=== PATIENT | female | born 1940 | race Asian ===

== ENCOUNTER 2017-02-01 13:26 | Outpatient (RCR) | payer MEDICARE, BC ==
[~2017-02-01 13:26] MED LIST: ALLEGRA 180MG180 MG PO; ASPIRIN 81M81 MG/TA2 PO; CITRACAL + D CA1 TAB PO; CORDARONE200 MG/TAB PO; COUMADIN 5MG5 MG/TAB PO; COZAAR 25MG25 MG/TAB PO; DIOVAN320 MG PO; ELIDEL1% TOP; FLONASEALLERGY NS; GLUCOPHAGE500 MG/TAB PO; K-DUR 10 MEQ T10 MEQ PO; LASIX 40MG TABL40 MG PO; LIPITOR 40MG TA40 MG PO; MULTIPLE VITAMI1 CAP PO; OSCAL 500 TAB500 MG PO; ROBAFEN COUGH PO; TOPROL XL 25MG25 MG PO; VERELAN240 MG PO
== END 2017-02-03 | disposition still patient (30) ==
LOC: COL.CR
DX: Z48.812 Encounter for surgical aftercare following surgery on the circulatory system (principal); Z95.2 Presence of prosthetic heart valve; Z79.01 Long term (current) use of anticoagulants; I35.2 Nonrheumatic aortic (valve) stenosis with insufficiency; I34.0 Nonrheumatic mitral (valve) insufficiency

== ENCOUNTER 2017-03-04 15:41 | Outpatient (RCR) | payer MEDICARE, BC | END 2017-05-05 | disposition home or self-care (01) | LOC: COL.CR | DX: Z48.812 Encounter for surgical aftercare following surgery on the circulatory system (principal); Z95.2 Presence of prosthetic heart valve ==

== ENCOUNTER → 2017-09-30 | Outpatient (CLI) | payer MEDICARE, BC | LOC: COL.RAD 08:03 | DX: K82.8 Other specified diseases of gallbladder (principal) | CPT/HCPCS: A9537 ==

== ENCOUNTER 2017-11-05 07:15 | Day surgery (SDC) | payer MEDICARE, BC ==
[2017-11-05] VITALS (7 sets, daily range): BP systolic 100–152; BP diastolic 48–96; PULSE 47–82; TEMP 98–98.3
[~2017-11-05] VITALS: Ht 157.5 cm; Wt 81.2 kg
[2017-11-05 08:09] LABS: PROTHROMBIN TIME 11.3 SECONDS (9.7-12.8)
[2017-11-05 08:11] LABS: POTASSIUM 4.2 mmol/L (3.4-5.0)
[2017-11-05 08:46] LABS: THYROID STIMULATING HORMONE 47.2 uIU/mL (0.465-4.680)
== END 2017-11-05 11:37 | disposition home or self-care (01) ==
LOC: COL.CAR 07:15
PROVIDERS: Internal Medicine Cardiovascular Disease
DX: I48.0 Paroxysmal atrial fibrillation (principal); I48.92 Unspecified atrial flutter; I10 Essential (primary) hypertension; E78.5 Hyperlipidemia, unspecified; E11.9 Type 2 diabetes mellitus without complications; I27.20 Pulmonary hypertension, unspecified; I34.0 Nonrheumatic mitral (valve) insufficiency; Z95.2 Presence of prosthetic heart valve; Z79.84 Long term (current) use of oral hypoglycemic drugs; Z82.49 Family history of ischemic heart disease and other diseases of the circulatory system
CPT/HCPCS: J2250; J3010; J7030

== ENCOUNTER → 2017-12-09 | Outpatient (CLI) | payer MEDICARE, BC | LOC: MC.RAD 13:40 | DX: Z12.31 Encounter for screening mammogram for malignant neoplasm of breast (principal) ==

== ENCOUNTER 2018-10-15 15:45 | Outpatient (RCR) | payer MEDICARE | END 2018-12-16 | disposition home or self-care (01) | LOC: COL.CR | DX: Z02.89 Encounter for other administrative examinations (principal) ==

== ENCOUNTER 2019-06-01 17:24 | Emergency (ER) | payer MEDICARE, BC ==
[~2019-06-01] VITALS: Ht 157.5 cm; Wt 83.2 kg
[2019-06-01 17:33] VITALS: TEMP 96.6
[2019-06-01 18:19] LABS: BASO % 0.7 % (0.0-2.0); EOS # 0.1 (0.0-0.7); EOS % 2.3 % (0-4.0); GRAN # 3.3 (1.4-6.5); GRAN % 58.4 % (42.2-75.2); HEMOGLOBIN 13.5 g/dl (12.5-16.0); LYMPH # 1.6 (1.2-3.4); LYMPH % 28.5 % (20.0-51.0); MEAN CELL VOLUME 93 fl (80.0-100.0); MEAN CORPUSCULAR HEMOGLOBIN 31 pg (27.0-31.0); MEAN CORPUSCULAR HGB CONC 33 g/dl (33.0-37.0); MEAN PLATELET VOLUME 10.6 fl (7.4-10.4); MONO # 0.6 (0.1-0.6); MONO % 9.7 % (1.7-9.3); PLATELET COUNT 193 K/mm3 (130-400); RED BLOOD COUNT 4.41 M/mm3 (4.10-5.30)
[2019-06-01 18:24] LABS: INR 1.1 (0.8-3.0); PROTHROMBIN TIME 13.2 SECONDS (9.7-12.8)
[2019-06-01 18:27] LABS: PARTIAL THROMBOPLASTIN TIME 41.6 SECONDS (26.0-37.0)
[2019-06-01 18:32] LABS: ALANINE AMINOTRANSFERASE 13 U/L (9-52); ALKALINE PHOSPHATASE 78 U/L (50-136); ANION GAP 10 mmol/L (7-16); AST,SGOT 29 U/L (15-37); BILIRUBIN,TOTAL 0.4 mg/dL (0.0-1.0); BLOOD UREA NITROGEN 25 mg/dL (7-17); CALCIUM 10.1 mg/dL (8.4-10.2); CARBON DIOXIDE 31 mmol/L (22-30); CHLORIDE 98 mmol/L (98-107); CREATININE, serum 0.84 (0.52-1.25); GLUCOSE 106 mg/dL (74-106); POTASSIUM 3.7 mmol/L (3.4-5.0); SODIUM 140 mmol/L (137-145); TOTAL PROTEIN 7.5 gm/dL (6.4-8.2)
[2019-06-01 18:57] LABS: TROPONIN-I < 0.012 ng/mL (0.000-0.035)
[2019-06-01 21:02] VITALS: BP 107/55; PULSE 94
== END 2019-06-01 21:02 | disposition home or self-care (01) ==
LOC: COL.ER 17:24
PROVIDERS: Family Medicine
DX: R07.89 Other chest pain (principal); I48.91 Unspecified atrial fibrillation; Z79.82 Long term (current) use of aspirin; Z79.84 Long term (current) use of oral hypoglycemic drugs

== ENCOUNTER → 2020-10-13 | Outpatient (CLI) | payer MEDICARE, BC | LOC: COL.RAD 15:22 | DX: N95.0 Postmenopausal bleeding (principal); N93.8 Other specified abnormal uterine and vaginal bleeding ==

== ENCOUNTER 2021-02-11 21:20 | Emergency (ER) | payer MEDICARE, BC ==
[~2021-02-11] VITALS: Ht 160 cm; Wt 73.2 kg
[~2021-02-11 21:20] MED LIST changes: -MULTIPLE VITAMI1 CAP PO; +MULTIPLE VITAMI1 TA5 PO
[2021-02-11 21:24] VITALS: TEMP 99.6
[2021-02-11 23:07] VITALS: BP 119/65; PULSE 76
== END 2021-02-11 23:07 | disposition home or self-care (01) ==
LOC: COL.ER 21:20
DX: S69.92XA Unspecified injury of left wrist, hand and finger(s), initial encounter (principal); I10 Essential (primary) hypertension; I25.10 Atherosclerotic heart disease of native coronary artery without angina pectoris; Z95.9 Presence of cardiac and vascular implant and graft, unspecified; Z88.0 Allergy status to penicillin; Z79.82 Long term (current) use of aspirin; W01.0XXA Fall on same level from slipping, tripping and stumbling without subsequent striking against object, initial encounter

== ENCOUNTER 2021-05-09 17:51 | Inpatient (IN) | payer MEDICARE, BC ==
--- NOTE | 2021-05-10 14:30 | NUR ---
Pt admitted to medical unit rm 315 from home, ambulates into room with steady gait, A&O x 4. Physical assessment unremarkable. Pt denies pain. POC and room orientation reviewed with pt. Call light in reach.
[2021-05-10] MEDS ORDERED: TYLENOL W/COD1 UDTAB PO (14:31)
[2021-05-10] MEDS ORDERED: LIPITOR 10MG10 MG PO (14:32)
[2021-05-10] MEDS ORDERED: CALCIUM CARBON650 M2 PO (14:32)
[2021-05-10] MEDS ORDERED: COLCRYS0.6 MG PO (14:34)
[2021-05-10] MEDS ORDERED: TIAZAC180 MG PO (14:37)
[2021-05-10] MEDS ORDERED: ELIQUIS 5MG PO (14:41)
[2021-05-10] MEDS ORDERED: SYNTHROID0.088 MG/T PO (14:43)
[2021-05-10] MEDS ORDERED: PREDNISONE 5MG5 MG PO (14:43)
[2021-05-10] MEDS ORDERED: DIOVAN HCT 25 M1 TAB PO (14:45)
[2021-05-10 14:52] LABS: ALBUMIN 4.5 gm/dL (3.5-5.0); BILIRUBIN,TOTAL 0.4 mg/dL (0.0-1.0); CALCIUM 10.4 mg/dL (8.4-10.2); CREATININE, serum 1.16 (0.52-1.25); POTASSIUM 3.7 mmol/L (3.4-5.0); TOTAL PROTEIN 7.9 gm/dL (6.4-8.2)
[2021-05-10 14:53] LABS: BASO # 0.1 (0.0-0.2); BASO % 0.7 % (0.0-2.0); EOS # 0.1 (0.0-0.7); EOS % 0.8 % (0-4.0); GRAN # 5.7 (1.4-6.5); GRAN % 77.2 % (42.2-75.2); LYMPH # 0.9 (1.2-3.4); MEAN CELL VOLUME 92 fl (80.0-100.0); MEAN CORPUSCULAR HEMOGLOBIN 30 pg (27.0-31.0); MEAN CORPUSCULAR HGB CONC 33 g/dl (33.0-37.0); MEAN PLATELET VOLUME 9.7 fl (7.4-10.4); MONO # 0.6 (0.1-0.6); MONO % 8.6 % (1.7-9.3); PLATELET COUNT 272 K/mm3 (130-400); RED BLOOD COUNT 3.97 M/mm3 (4.10-5.30); REDCELL DISTRIBUTION WIDTH-CV 15.2 % (11.5-14.5)
[2021-05-10 14:54] LABS: INR 1.4 (0.8-3.0)
[2021-05-10 15:04] LABS: HEMATOCRIT 36.6 % (37.0-47.0)
[2021-05-10 16:31] VITALS: BP 142/72; PULSE 130; TEMP 98.1
--- NOTE | 2021-05-10 19:18 | NUR ---
Report with JAMEY Santoro. Pt sitting up in chair, denies needs or c/o at this time. Call light in reach.
--- NOTE | 2021-05-10 20:30 | NUR ---
Initial shift assessment done-- denies any chest pain or SOB, sitting in chair, watching a show on her Ipad, requesting a snack tonight- pleasant , alert/oriented. Tele on- afib, rate 128/ just received her first dose of sotalol -
[2021-05-10 21:05] VITALS: BP 122/75; PULSE 122; TEMP 98.3
[2021-05-10 23:51] VITALS: BP 128/78; PULSE 116
--- NOTE | 2021-05-11 00:03 | NUR ---
No requests at this time , VSS, Tele is ST at 118,, talked to forensic technician at this time- states patient has been ST all shift not afib as thought earlier in the shift- states there is a small p-wave noted. Pt states she feels fine- just cant sleep--offered restoril or tylenol and pt declined--states this is nothing new to her-she doesnt sleep much
[2021-05-11 04:06] VITALS: BP 109/72; PULSE 120; TEMP 98
--- NOTE | 2021-05-11 05:07 | NUR ---
Resting-- has not slept much,, tele on, remains in ST with rate 114-120,,B/P stable
[2021-05-11 06:30] LABS: BASO % 0.5 % (0.0-2.0); EOS # 0.1 (0.0-0.7); EOS % 1.2 % (0-4.0); GRAN # 5.4 (1.4-6.5); GRAN % 72.4 % (42.2-75.2); HEMOGLOBIN 11.6 g/dl (12.5-16.0); LYMPH # 1.3 (1.2-3.4); MEAN CELL VOLUME 93 fl (80.0-100.0); MEAN CORPUSCULAR HEMOGLOBIN 31 pg (27.0-31.0); MEAN CORPUSCULAR HGB CONC 33 g/dl (33.0-37.0); MEAN PLATELET VOLUME 9.8 fl (7.4-10.4); MONO # 0.6 (0.1-0.6); MONO % 7.4 % (1.7-9.3); PLATELET COUNT 249 K/mm3 (130-400); RED BLOOD COUNT 3.79 M/mm3 (4.10-5.30); REDCELL DISTRIBUTION WIDTH-CV 15.2 % (11.5-14.5)
[2021-05-11 06:35] LABS: HEMATOCRIT 35.1 % (37.0-47.0)
[2021-05-11 06:38] LABS: INR 1.2 (0.8-3.0); PROTHROMBIN TIME 13.4 SECONDS (9.7-12.8)
[2021-05-11 06:59] LABS: CALCIUM 10.1 mg/dL (8.4-10.2); CREATININE, serum 0.88 (0.52-1.25); POTASSIUM 3.4 mmol/L (3.4-5.0)
[2021-05-11 07:09] LABS: MAGNESIUM 2.2 mg/dL (1.6-2.3)
--- NOTE | 2021-05-11 08:00 | NUR ---
PT RECEIVED AWARE AND ALERT. NO S/S OF DISTRESS NOTED. PT VOICES NO COMPLAINTS. DENIES PAIN. CALL-LIGHT IN REACH. BED IN LOW POSITION.
[2021-05-11 08:01] VITALS: BP 121/79; PULSE 125; TEMP 97.5
--- NOTE | 2021-05-11 11:58 | NUR ---
First visit from the stripper and taper. No needs right now.
[2021-05-11 12:10] VITALS: BP 91/58; PULSE 76; TEMP 97.7
[2021-05-11 15:33] VITALS: BP 76/46; PULSE 60; TEMP 98.2
[2021-05-11 15:48] VITALS: BP 94/62; PULSE 79
--- NOTE | 2021-05-11 16:41 | NUR ---
Natural Resource Officer met with patient to discuss discharge planning. Patient lives in [place] with her , Akira (ph#[phone]) and sees Dr. Mayfield for primary care. [facility]. Patient does not use any DME and is independent with ADLS. Patient believes her daughter, Mayra (ph#[phone]) is DPOA-HC, however does not know where a copy is located. Patient plans to return home upon discharge. JONATHAN spoke with JAMEY Mcmanus who advised patient has been independent in her room. Discharge Plan: Home with spouse
--- NOTE | 2021-05-11 17:53 | NUR ---
PT HAD NO COMPLAINTS THROUGHOUT THE DAY. SPOUSE AT THE BEDSIDE. MEDICATIONS ADMINISTERED ORDERED. PT DENIES PAIN. PHYSICIAN AT THE BEDSIDE, EXPLAINED CARDIOVERSION PROCEDURE TOMORROW. CONSENT SIGNED. TELE MONITOR IN PLACE, VS STABLE. PT ATE MOST OF HER MEALS. CALL LIGHT IN REACH. BED IN LOW POSITION. WILL CONTINUE TO MONITOR.
[2021-05-11 20:13] VITALS: BP 100/52; PULSE 79; TEMP 98.3
--- NOTE | 2021-05-11 22:07 | NUR ---
Patient assessed around 2114. Alert and oriented x 4, and able to make needs known. Denies having pain and discomfort at this time. Peripheral INT to left hand. Denies SOB and dyspnea. LS CTA. Respirations even and unlabored. HRI. Telemetry in place: a-fib, rate controlled at this time. Capillary refill less than 3 seconds. Non-tenting skin turgor. BSAx4. Abdomen soft and non-tender. No edema. Voices no questions, needs, or concerns at this time. Updated about plan to do cardioversion tomorrow, and that she will not be able to eat or drink after midnight. Voiced understanding. Resting in bed with call light within reach.
[2021-05-12 00:25] VITALS: BP 116/68; PULSE 79; TEMP 97.6
[2021-05-12 05:18] VITALS: BP 110/65; PULSE 96; TEMP 97.7
--- NOTE | 2021-05-12 06:26 | NUR ---
Patient has denied having pain and discomfort this shift. Voices no questions, needs, or concerns at this time. NPO for cardioversion today.
[2021-05-12 06:52] LABS: CALCIUM 9.9 mg/dL (8.4-10.2); CREATININE, serum 1.01 (0.52-1.25); POTASSIUM 3.8 mmol/L (3.4-5.0)
[2021-05-12 06:54] LABS: INR 1.2 (0.8-3.0); PROTHROMBIN TIME 13.1 SECONDS (9.7-12.8)
[2021-05-12 06:56] LABS: BASO # 0.1 (0.0-0.2); BASO % 0.7 % (0.0-2.0); EOS # 0.1 (0.0-0.7); EOS % 1.5 % (0-4.0); GRAN # 4.3 (1.4-6.5); GRAN % 63.4 % (42.2-75.2); HEMOGLOBIN 11.8 g/dl (12.5-16.0); LYMPH # 1.8 (1.2-3.4); LYMPH % 26.2 % (20.0-51.0); MEAN CELL VOLUME 91 fl (80.0-100.0); MEAN CORPUSCULAR HEMOGLOBIN 30 pg (27.0-31.0); MEAN CORPUSCULAR HGB CONC 33 g/dl (33.0-37.0); MEAN PLATELET VOLUME 9.8 fl (7.4-10.4); MONO # 0.5 (0.1-0.6); MONO % 7.6 % (1.7-9.3); PLATELET COUNT 263 K/mm3 (130-400); RED BLOOD COUNT 3.93 M/mm3 (4.10-5.30); REDCELL DISTRIBUTION WIDTH-CV 14.7 % (11.5-14.5)
[2021-05-12 06:57] LABS: HEMATOCRIT 35.9 % (37.0-47.0)
[2021-05-12 07:34] VITALS: BP 111/67; PULSE 63; TEMP 98
--- NOTE | 2021-05-12 10:35 | NUR ---
PT TRANSFERRED FOR CARDIOVERSION IN STABLE CONDITION.
[2021-05-12] MEDS ORDERED: BETAPACE 120MG120 MG PO (10:59)
[2021-05-12] MEDS ORDERED: TIAZAC180 MG PO (11:01)
--- NOTE | 2021-05-12 12:00 | NUR ---
PT RECEIVED FROM CARDIOVERSION. VS CURRENTLY SABLE. NO S/S OF DISTRESS NOTED. WILL CONTINUE TO MONITOR.
[2021-05-12 12:02] VITALS: BP 96/61; PULSE 73; TEMP 98.2
--- NOTE | 2021-05-12 15:30 | NUR ---
PT DC'D AT THIS TIME. DISCHAGED INSTRUCTIONS REVIEWED AND GIVEN, PT VERBALIZES UNDERSTANDING. IV ACCESS REMOVED. PT TOOK ALL HER BELONGINGS. SPOUSE AT THE BEDSIDE. PT TRANSPORTED TO EXIT VIA WC.
== END 2021-05-12 15:46 | disposition home or self-care (01) | DRG 310 ==
LOC: UNDOADMIN 05-10 07:41 → INPTSU 05-10 07:41 → MEDICAL 05-10 13:43
PROVIDERS: ADMIT Internal Medicine Cardiovascular Disease
PROC: 5A2204Z Restoration of Cardiac Rhythm, Single (ICD-10-PCS; principal; 2021-05-10)
DX: I48.0 Paroxysmal atrial fibrillation (principal)
CPT/HCPCS: J2704; J7512

== ENCOUNTER 2021-05-30 08:41 | Inpatient (IN) | payer MEDICARE, BC ==
[~2021-05-30] VITALS: Ht 160.1 cm; Wt 74.5 kg
[~2021-05-30 08:41] MED LIST changes: +BETAPACE 120MG120 MG PO; +CALCIUM CARBON650 M2 PO; +COLCRYS0.6 MG PO; +DIOVAN HCT 25 M1 TAB PO; +ELIQUIS 5MG PO; +LIPITOR 10MG10 MG PO; +PREDNISONE 5MG5 MG PO; +SYNTHROID0.088 MG/T PO; +TIAZAC180 MG PO; +TYLENOL W/COD1 UDTAB PO
[2021-05-30 09:22] LABS: BASO % 0.4 % (0.0-2.0); EOS # 0.1 (0.0-0.7); EOS % 0.7 % (0-4.0); GRAN # 5.4 (1.4-6.5); GRAN % 74.8 % (42.2-75.2); HEMOGLOBIN 10.5 g/dl (12.5-16.0); LYMPH # 1.1 (1.2-3.4); LYMPH % 14.7 % (20.0-51.0); MEAN CELL VOLUME 91 fl (80.0-100.0); MEAN CORPUSCULAR HEMOGLOBIN 30 pg (27.0-31.0); MEAN CORPUSCULAR HGB CONC 33 g/dl (33.0-37.0); MEAN PLATELET VOLUME 10.3 fl (7.4-10.4); MONO # 0.7 (0.1-0.6); MONO % 9.3 % (1.7-9.3); PLATELET COUNT 243 K/mm3 (130-400); REDCELL DISTRIBUTION WIDTH-CV 14.7 % (11.5-14.5)
[2021-05-30 09:28] LABS: ALANINE AMINOTRANSFERASE 44 U/L (4-34); ALKALINE PHOSPHATASE 68 U/L (50-136); ANION GAP 8 mmol/L (7-16); AST,SGOT 33 U/L (15-37); BILIRUBIN,TOTAL 0.6 mg/dL (0.0-1.0); BLOOD UREA NITROGEN 40 mg/dL (7-17); CARBON DIOXIDE 25 mmol/L (22-30); CHLORIDE 94 mmol/L (98-107); CREATININE, serum 1.09 (0.52-1.25); GLUCOSE 117 mg/dL (74-106); POTASSIUM 3.9 mmol/L (3.4-5.0); SODIUM 127 mmol/L (137-145); TOTAL PROTEIN 7.1 gm/dL (6.4-8.2)
[2021-05-30 09:33] LABS: INR 1.4 (0.8-3.0)
[2021-05-30 09:35] LABS: PARTIAL THROMBOPLASTIN TIME 37.5 SECONDS (26.0-37.0)
[2021-05-30 09:45] LABS: TROPONIN-I < 0.012 ng/mL (0.000-0.035)
[2021-05-30 09:54] LABS: MAGNESIUM 2.3 mg/dL (1.6-2.3)
[2021-05-30 15:32] LABS: TROPONIN-I < 0.012 ng/mL (0.000-0.035)
[2021-05-30] MEDS ORDERED: BETAPACE 80MG80 MG PO (15:38)
[2021-05-30] MEDS ORDERED: GLUCOPHAGE XR500 M1 PO (15:40)
[2021-05-30 15:49] LABS: TSH w REFLEX 0.213 uIU/mL (0.465-4.680)
--- NOTE | 2021-05-30 17:10 | NUR ---
PT PLEASANT, AOX4, REPORTS MILD CRAMPING INT IN FOOT RELIEVED WITH MOVEMENT, AT BEDSIDE, PT SHOWN HOW TO ORDER MEALS, NO OTHER NEEDS
[2021-05-30 17:17] VITALS: BP 107/52; PULSE 51; TEMP 98.4
[2021-05-30 20:03] VITALS: BP 118/59; PULSE 54; TEMP 98.1
--- NOTE | 2021-05-30 21:00 | NUR ---
Initial shift assessment done-denies pain, Up to bathroom, voiding clear yellow urine, Tele on- SB 54/min,, will be NPO after MN,, did talk to Edwina SALESPERSON TERRAZZO TILES about pts Sotalol dose- pt thought it was to be decreased , Edwina stated to give it as ordered after she looked over the service department manager orders--
[2021-05-30 23:48] VITALS: BP 113/62; PULSE 50; TEMP 97.8
[2021-05-31] VITALS (13 sets, daily range): BP systolic 103–122; BP diastolic 40–60; PULSE 50–68; TEMP 97.5–99.3
--- NOTE | 2021-05-31 01:30 | NUR ---
States having right knee pain, also having leg cramps- sitting at egde of bed-- states the bed is so uncomfortable--will give tylenol at this time.
--- NOTE | 2021-05-31 06:05 | NUR ---
Sitting up in recliner at this time- states her right knee is still painful but does not want pain meds, NPO for stress test. Tele on SB, rate from lower 40,s-50,s throughout the night
[2021-05-31 06:33] LABS: BASO % 0.5 % (0.0-2.0); EOS # 0.1 (0.0-0.7); GRAN # 6.3 (1.4-6.5); GRAN % 75.4 % (42.2-75.2); HEMOGLOBIN 11.2 g/dl (12.5-16.0); LYMPH # 1.1 (1.2-3.4); LYMPH % 13.5 % (20.0-51.0); MEAN CELL VOLUME 93 fl (80.0-100.0); MEAN CORPUSCULAR HEMOGLOBIN 30 pg (27.0-31.0); MEAN CORPUSCULAR HGB CONC 33 g/dl (33.0-37.0); MEAN PLATELET VOLUME 10.3 fl (7.4-10.4); MONO # 0.8 (0.1-0.6); MONO % 9.2 % (1.7-9.3); PLATELET COUNT 259 K/mm3 (130-400); REDCELL DISTRIBUTION WIDTH-CV 14.6 % (11.5-14.5)
[2021-05-31 06:34] LABS: HEMATOCRIT 34.3 % (37.0-47.0)
[2021-05-31 06:43] LABS: ANION GAP 6 mmol/L (7-16); BLOOD UREA NITROGEN 36 mg/dL (7-17); CALCIUM 10.1 mg/dL (8.4-10.2); CARBON DIOXIDE 31 mmol/L (22-30); CHLORIDE 97 mmol/L (98-107); CREATININE, serum 1.04 (0.52-1.25); GLUCOSE 118 mg/dL (74-106); MAGNESIUM 2.3 mg/dL (1.6-2.3); POTASSIUM 3.6 mmol/L (3.4-5.0); SODIUM 134 mmol/L (137-145)
[2021-05-31 07:12] LABS: TROPONIN-I < 0.012 ng/mL (0.000-0.035)
--- NOTE | 2021-05-31 08:35 | NUR ---
Pt pleasant and able to follow verbal cues. AOx4. Expressed concern about pain in right knee radiating to calf. Requested to hold medications until after procedure this morning.
--- NOTE | 2021-05-31 11:54 | NUR ---
First visit from the sample clerk. Patient was gone to a procedure. Alumni Relations Manager spoke with . No needs at this time.
--- NOTE | 2021-05-31 14:37 | NUR ---
Pt had one occurrence of unmeasured void. The hat was moved from the toilet and placed on the side and pt voided without the hat. Upon finding, hat was immediately replaced by RN. Educated to void into hat from this point on. Pt reported large void. ESTUARDO Pelletier was notified prior to report no voiding.
--- NOTE | 2021-05-31 17:15 | NUR ---
Pt maintained NPO status until procedure results reviewed. Pt reported bout of pain in right knee, managed with PRN medication as ordered. Pt placed on fall risk precautions due to bouts of dizziness after procedure. Educated to push call light when needing to get up. Pt moved to [facility] diet with fluid restrictions after results from AM procedure reviewed. Pt free from injury during shift. Pt freely expressed concerns and visited throughout the day.
--- NOTE | 2021-05-31 21:00 | NUR ---
Initial shift assessment done- states feeling much better today--states the ES Tylenol is effective for her knee pain-- due for more around MN,, Tele on, SB low 50,s,, did get the lower dose of Sotalol tonight 60mg per orders,,
[2021-06-01 00:04] VITALS: BP 104/59; PULSE 53; TEMP 97.8
[2021-06-01 05:31] VITALS: BP 136/54; PULSE 66; TEMP 97.4
--- NOTE | 2021-06-01 05:46 | NUR ---
Quiet night-- VSS,, did take the ES tylenol at 0030 for knee pain-- has been sleeping in recliner all night- does not like our beds-- tele on-- remains SB with HR 45-50 throughout the night.
[2021-06-01 07:12] LABS: BASO % 0.3 % (0.0-2.0); EOS % 0.5 % (0-4.0); GRAN # 6.9 (1.4-6.5); GRAN % 79.1 % (42.2-75.2); HEMOGLOBIN 11.1 g/dl (12.5-16.0); LYMPH % 11.1 % (20.0-51.0); MEAN CELL VOLUME 95 fl (80.0-100.0); MEAN CORPUSCULAR HEMOGLOBIN 30 pg (27.0-31.0); MEAN CORPUSCULAR HGB CONC 32 g/dl (33.0-37.0); MEAN PLATELET VOLUME 10.3 fl (7.4-10.4); MONO # 0.8 (0.1-0.6); MONO % 8.7 % (1.7-9.3); PLATELET COUNT 277 K/mm3 (130-400); RED BLOOD COUNT 3.65 M/mm3 (4.10-5.30); REDCELL DISTRIBUTION WIDTH-CV 14.7 % (11.5-14.5)
[2021-06-01 07:13] LABS: HEMATOCRIT 34.6 % (37.0-47.0)
[2021-06-01 07:34] LABS: CALCIUM 9.8 mg/dL (8.4-10.2); CREATININE, serum 1.04 (0.52-1.25); MAGNESIUM 2.5 mg/dL (1.6-2.3); POTASSIUM 4.1 mmol/L (3.4-5.0)
--- NOTE | 2021-06-01 08:20 | NUR ---
PT PLEASANT, AOX4, REPORTS PAIN 1/10 IN R KNEE AND REQUESTED TYLENOL, 500MG TYLENOL GIVEN WITH OTHER MORNING MEDICATIONS, WENT OVER DOSAGE AND PURPOSE OF EACH MEDICATION, PT ASSESSMENT PERFORMED, ATE 100% OF BREAKFAST BUT DENIES MUCH OF AN APPETITE, IV TO LW CDI W/O ERYTHEMA, IV PATENT TO LASIX AND FLUSH. NO OTHER NEEDS
[2021-06-01 08:43] VITALS: BP 122/43; PULSE 52; TEMP 97.8
[2021-06-01] MEDS ORDERED: BETAPACE 120MG120 MG PO (09:03)
--- NOTE | 2021-06-01 10:30 | NUR ---
IV DISCONTINUED ALONG WITH TELE, DISCHARGE EDUCATION PROVIDED, NO OTHER NEEDS AT THIS TIME, PT ESCORTED OUT WITH VIA WHEELCHAIR WITH PT BELONGINGS, NO OTHER NEEDS
== END 2021-06-01 10:30 | disposition home or self-care (01) | DRG 641 ==
LOC: COL.ER 08:41 → MEDICAL 10:15
PROVIDERS: Family Medicine; Physician Assistant; ADMIT Internal Medicine
DX: E87.70 Fluid overload, unspecified (principal); E87.1 Hypo-osmolality and hyponatremia; I48.0 Paroxysmal atrial fibrillation; E03.9 Hypothyroidism, unspecified; E11.9 Type 2 diabetes mellitus without complications; E78.5 Hyperlipidemia, unspecified; I27.20 Pulmonary hypertension, unspecified; Z79.84 Long term (current) use of oral hypoglycemic drugs; R00.1 Bradycardia, unspecified; D64.9 Anemia, unspecified; M06.9 Rheumatoid arthritis, unspecified; R19.7 Diarrhea, unspecified; Z98.51 Tubal ligation status; Z95.2 Presence of prosthetic heart valve; Z95.1 Presence of aortocoronary bypass graft
CPT/HCPCS: 99222-AI; 99232-AI; 99239; A9500; J1815; J1940; J2785; J7512

== ENCOUNTER → 2021-12-19 | Outpatient (CLI) | payer MEDICARE, BC ==
[~2021-12-19] MED LIST changes: +BETAPACE 80MG80 MG PO; +GLUCOPHAGE XR500 M1 PO
== END ==
LOC: MC.RAD 11-14 13:00
DX: Z12.31 Encounter for screening mammogram for malignant neoplasm of breast (principal)

== ENCOUNTER → 2022-02-26 | Outpatient (CLI) | payer MEDICARE, BC ==
[~2022-02-26] VITALS: Ht 157.5 cm; Wt 71.9 kg
[2022-02-26 11:40] VITALS: BP 132/70; PULSE 50; TEMP 98
[2022-02-26 13:45] VITALS: BP 158/58; PULSE 50
== END ==
LOC: COL.RAD 11:54
DX: E04.1 Nontoxic single thyroid nodule (principal)

== ENCOUNTER 2024-07-17 07:21 | Emergency (ER) | payer MEDICARE, BC ==
[~2024-07-17] VITALS: Ht 157.5 cm; Wt 69.1 kg
[2024-07-17 07:28] VITALS: TEMP 98.1
[2024-07-17 07:58] LABS: BASO % 0.9 % (0.0-2.0); EOS # 0.1 K/mm3 (0.0-0.7); EOS % 2.7 % (0.0-4.0); GRAN # 2.3 K/mm3 (1.4-6.5); GRAN % 50.7 % (42.2-75.2); HEMATOCRIT 31.9 % (37.0-47.0); HEMOGLOBIN 10.1 g/dl (12.5-16.0); LYMPH # 1.5 K/mm3 (1.2-3.4); LYMPH % 33.5 % (20.0-51.0); MEAN CELL VOLUME 92 fl (80.0-100.0); MEAN CORPUSCULAR HEMOGLOBIN 29 pg (27-31); MEAN CORPUSCULAR HGB CONC 32 g/dl (33.0-37.0); MEAN PLATELET VOLUME 11.5 fl (7.4-10.4); MONO # 0.5 K/mm3 (0.1-0.6); MONO % 11.8 % (1.7-9.3); PLATELET COUNT 149 K/mm3 (130-400); RED BLOOD COUNT 3.48 M/mm3 (4.10-5.30); REDCELL DISTRIBUTION WIDTH-CV 14.6 % (11.5-14.5)
[2024-07-17 08:12] LABS: ALANINE AMINOTRANSFERASE 57 U/L (0-55); ALBUMIN 3.3 g/dL (3.4-4.8); ALKALINE PHOSPHATASE 73 U/L (40-150); ANION GAP 10 mmol/L (7-16); AST,SGOT 63 U/L (5-34); BILIRUBIN,TOTAL 0.7 mg/dL (0.2-1.2); BLOOD UREA NITROGEN 27 mg/dL (10-20); CALCIUM 9.5 mg/dL (8.4-10.2); CHLORIDE 100 mEq/L (98-107); CREATININE, serum 0.92 mg/dL (0.57-1.11); GLUCOSE 143 mg/dL (70-99); SODIUM 133 mEq/L (136-145)
[2024-07-17 08:18] LABS: TROPONIN-I < 0.010 ng/mL (0.00-0.033)
[2024-07-17] MEDS ORDERED: Furosemide 40 MG/4 ML VIAL IV ONE (09:00)
[2024-07-17] MEDS ORDERED: Iohexol 300 - 100 ML VIAL IV ONE (10:09)
[2024-07-17] MEDS ORDERED: NS 100 ML IV SCH (10:10)
[2024-07-17 11:18] VITALS: BP 126/59; PULSE 46
== END 2024-07-17 11:18 | disposition home or self-care (01) ==
LOC: COL.ER 07:21
PROVIDERS: Personal Emergency Response Attendant
DX: R91.1 Solitary pulmonary nodule (principal); R06.00 Dyspnea, unspecified; E87.70 Fluid overload, unspecified; Z79.899 Other long term (current) drug therapy
CPT/HCPCS: J1940; Q9967